=== PATIENT | female | born 1975 ===

== ENCOUNTER → 2019-10-25 | Outpatient (CLI) | payer BC ==
--- NOTE | 2019-10-25 17:52 | Diagnostic Imaging Report ---
INDICATION: Routine screening. COMPARISON: No prior mammograms are available for comparison. This is a baseline study. 2-D and 3-D bilateral screening mammography was performed. The current study was also evaluated with a Computer Aided Detection (CAD) system. 3-D tomosynthesis was also performed and reviewed. FINDINGS: Both breasts are heterogeneously dense, limiting the sensitivity of mammography. No mass or malignant-appearing microcalcifications are seen. Axillae are unremarkable. IMPRESSION: No mammographic features suspicious for malignancy are identified. ACR BI-RADS Category 1: Negative. Result letter will be mailed to the patient. Note: At least 10% of breast cancer is not imaged by mammography. Dictated by: Dictated on workstation # [id number]
== END ==
LOC: RAD 15:35
PROVIDERS: ATTEND Obstetrics & Gynecology
DX: Z12.31 Encounter for screening mammogram for malignant neoplasm of breast (principal)
CPT/HCPCS: 77067

== ENCOUNTER 2021-06-02 17:04 | Emergency (ER) | payer BC ==
[~2021-06-02] VITALS: Ht 163 cm; Wt 90.0 kg
[2021-06-02 17:37] LABS: CLARITY,URINE CLOUDY; COLOR,URINE ORANGE; GLUCOSE, URINE (UA) 1+ (NEGATIVE); KETONES,URINE TRACE (NEGATIVE); LEUKOCYTE ESTERASE ,URINE 2+ (NEGATIVE); NITRITE,URINE POSITIVE (NEGATIVE); PROTEIN,URINE 3+ (NEGATIVE)
--- NOTE | 2021-06-02 17:46 | ED GU-Female ---
General Chief Complaint: - Reproductive Stated Complaint: BURNING WITH URINATION/L LOW BACK PAIN Nursing Triage Note: PT CO OF PAIN AND BURNING UPON URINATION, HAS LOWER ABD DISCOMFORT AND LOW BACK PAIN. STARTED ON THURSDAY. PT STATES HAS BEEN TAKING AZO. Source: patient Exam Limitations: no limitations History of Present Illness Date Seen by Provider: Jun 02, 2021 Time Seen by Provider: 17:20 Initial Comments Burning and pain on urination with low abdomen and low back pain that began on Thursday. Has been using wljo-nax-gnyfryk Azo for symptom control. Timing/Duration: constant Severity/Quality: moderate Location: suprapubic Radiation: none Activities at Onset: none Prior Genitourinary Problems: none Associated Symptoms: lower back pain Allergies and Home Medications Allergies Coded Allergies: No Known Drug Allergies (Unverified , 06/02/21) Patient Home Medication List Home Medication List Reviewed: Yes Review of Systems Review of Systems Constitutional: see HPI EENTM: see HPI Respiratory: no symptoms reported Cardiovascular: no symptoms reported Genitourinary: see HPI Musculoskeletal: no symptoms reported Skin: no symptoms reported Psychiatric/Neurological: No Symptoms Reported Endocrine: No Symptoms Reported Past Fjbemtu-Uyflkg-Dlquma Hx Patient Social History Tobacco Use?: No Substance use?: No Alcohol Use?: Yes Alcohol type: Wine Alcohol Frequency: Rarely Pt feels they are or have been: No Immunizations Up To Date Second COVID19 Vaccination Con: MODERNA BOTH VACCINES Physical Exam Vital Signs Vital Signs - First Documented 06/02/21 17:09 Temp 36.9 Pulse 91 Resp 18 B/P (MAP) 118/55 (76) Pulse Ox 97 Capillary Refill : Less Than 3 Seconds Height, Weight, BMI Height: '" Weight: lbs. oz. kg; 33.00 BMI Method: General Appearance: WD/WN, no apparent distress HEENT: PERRL/EOMI, normal ENT inspection Respiratory: no respiratory distress, no accessory muscle use Gastrointestinal: normal bowel sounds, non tender, soft Extremities: normal range of motion, non-tender Neurologic/Psychiatric: alert, normal mood/affect, oriented x 3 Skin: normal color, warm/dry Progress/Results/Core Measures Suspected Sepsis SIRS Temperature: Pulse: 91 Respiratory Rate: 18 Blood Pressure 118 /55 Mean: 76 Results/Orders Lab Results Laboratory Tests Test 06/02/21 17:20 Range/Units Urine Color ORANGE Urine Clarity CLOUDY Urine pH 5.0 5-9 Urine Specific [place] >=1.030 1.016-1.022 Urine Protein 3+ H NEGATIVE Urine Glucose (UA) 1+ H NEGATIVE Urine Ketones TRACE H NEGATIVE Urine Nitrite POSITIVE H NEGATIVE Urine Bilirubin 2+ H NEGATIVE Urine Urobilinogen >=8.0 < = 1.0 MG/DL Urine Leukocyte Esterase 2+ H NEGATIVE Urine RBC (Auto) 3+ H NEGATIVE Urine RBC 50-100 H /HPF Urine WBC 25-50 H /HPF Urine Crystals PRESENT H /LPF Urine Amorphous Sediment RARE JUAN URATES H /LPF Urine Bacteria FEW H /HPF Urine Casts NONE /LPF Urine Mucus NEGATIVE /LPF Urine Culture Indicated YES My Orders Orders - DESIRAE REARDON APRN Ua Culture If Indicated (06/02/21 17:09) Urine Culture (06/02/21 17:20) Ketorolac Injection (Toradol Injection) (06/02/21 18:00) Ceftriaxone (Rocephin) (06/02/21 18:00) Vital Signs/I&O 06/02/21 17:09 Temp 36.9 Pulse 91 Resp 18 B/P (MAP) 118/55 (76) Pulse Ox 97 Capillary Refill : Less Than 3 Seconds Blood Pressure Mean: 76 Departure Impression Primary Impression: Urinary tract infection Disposition: 01 HOME, SELF-CARE Condition: Stable Departure-Patient Inst. Decision time for Depature: 18:08 Referrals: JORGE CHAPMAN MD (PCP/Family) Primary Care Physician Patient Instructions: Urinary Tract Infection, Adult (DC) Add. Discharge Instructions: All discharge instructions reviewed with patient and/or family. Voiced understanding. Scripts Cefuroxime Axetil (Cefuroxime) 250 Mg Tablet 250 MG PO BID, #10 TAB Prov: DESIRAE REARDON APRN 06/02/21 DESIRAE REARDON APRN Jun 02, 2021 17:46
[2021-06-02 17:47] LABS: BILIRUBIN,URINE 2+ (NEGATIVE); RBC,URINE 50-100 /HPF
[2021-06-02 17:48] LABS: AMORPHOUS SEDIMENT,UR RARE AMOR URATES /LPF; BACTERIA,URINE FEW /HPF; WBC,URINE 25-50 /HPF
[2021-06-02] MEDS ORDERED: cefTRIAXone 1,000 MG VIAL IM ONE (18:00)
[2021-06-02] MEDS ORDERED: KETOROLAC 30 MG/ML VIAL IM ONE (18:00)
[2021-06-02] MEDS ORDERED: CEFU250T80 PO (18:12)
[2021-06-02 18:34] VITALS: BP 118/55
== END 2021-06-02 18:45 | disposition home or self-care (01) ==
LOC: EDUNIT# 17:04 → ER 17:08
DX: N39.0 Urinary tract infection, site not specified (principal)
CPT/HCPCS: 81000; 87077; 87088; 87186; 99284

== ENCOUNTER 2022-07-06 13:32 | Emergency (ER) | payer SELFPAY ==
[~2022-07-06] VITALS: Ht 167 cm; Wt 93.0 kg
[~2022-07-06 13:32] MED LIST: CEFU250T80 PO
[2022-07-06] MEDS ORDERED: ACETAMINOPHEN 500 MG TAB (TYLENOL) PO ONE (14:00)
--- NOTE | 2022-07-06 14:02 | ED General ---
General Stated Complaint: UTI SYMPTOMS History of Present Illness Date Seen by Provider: Jul 06, 2022 Time Seen by Provider: 13:45 Initial Comments Patient is a 46-year-old female who presents to the emergency department with fever that began earlier today. Patient was diagnosed with a UTI 3 days ago and was placed on Bactrim. She states she has had improvement in her dysuria since that time. She states she generally feels unwell and has mild body aches/headache. She denies any cough, nasal congestion, vomiting/diarrhea. No known sick contacts. She has not taken anything today for the symptoms other than a dose of Tylenol early this morning. Allergies and Home Medications Allergies Coded Allergies: No Known Drug Allergies (Unverified , 06/02/21) Patient Home Medication List Home Medication List Reviewed: Yes Cefuroxime Axetil (Cefuroxime) 250 Mg Tablet, 250 MG PO BID Prescribed by: DESIRAE REARDON on 06/02/211811 Review of Systems Review of Systems Constitutional: see HPI EENTM: no symptoms reported Respiratory: no symptoms reported Cardiovascular: no symptoms reported Gastrointestinal: no symptoms reported Genitourinary: see HPI Psychiatric/Neurological: See HPI, Headache Past Xlbvqty-Bxtjxc-Smmnvn Hx Immunizations Up To Date Second COVID19 Vaccination Con: MODERNA BOTH VACCINES Physical Exam Vital Signs Vital Signs - First Documented 07/06/22 07/06/22 13:45 15:56 Temp 39.4 Pulse 113 Resp 20 B/P (MAP) 121/67 (85) Pulse Ox 97 O2 Delivery Room Air Capillary Refill : Height, Weight, BMI Height: '" Weight: lbs. oz. kg; 33.00 BMI Method: General Appearance: No Apparent Distress, WD/WN HEENT: PERRL/EOMI, TMs Normal, Normal ENT Inspection, Pharynx Normal Neck: Full Range of Motion, Normal Inspection Respiratory: Chest Non Tender, Lungs Clear, Normal Breath Sounds Cardiovascular: Regular Rate, Rhythm Gastrointestinal: Normal Bowel Sounds, Non Tender, Soft Back: Normal Inspection, No Vertebral Tenderness Extremity: Normal Capillary Refill, Normal Inspection, Normal Range of Motion, Non Tender, No Calf Tenderness Neurologic/Psychiatric: Alert, Oriented x3, No Motor/Sensory Deficits, Normal Mood/Affect Skin: Normal Color, Warm/Dry Progress/Results/Core Measures Suspected Sepsis SIRS Temperature: Pulse: Respiratory Rate: Laboratory Tests 07/06/22 14:19: White Blood Count 7.4 Blood Pressure / Mean: Laboratory Tests 07/06/22 14:19: Creatinine 0.83, Platelet Count 290, Total Bilirubin 0.3 Results/Orders Lab Results Laboratory Tests Test 07/06/22 14:06 07/06/22 14:19 07/06/22 14:21 Range/Units Urine Color YELLOW Urine Clarity CLEAR Urine pH 6.0 5-9 Urine Specific [place] <=1.005 1.016-1.022 Urine Protein NEGATIVE NEGATIVE Urine Glucose (UA) NEGATIVE NEGATIVE Urine Ketones NEGATIVE NEGATIVE Urine Nitrite NEGATIVE NEGATIVE Urine Bilirubin NEGATIVE NEGATIVE Urine Urobilinogen 0.2 < = 1.0 MG/DL Urine Leukocyte Esterase NEGATIVE NEGATIVE Urine RBC (Auto) 1+ H NEGATIVE Urine RBC 0-2 /HPF Urine WBC NONE /HPF Urine Squamous Epithelial Cells 10-25 H /HPF Urine Crystals NONE /LPF Urine Bacteria TRACE /HPF Urine Casts NONE /LPF Urine Mucus NEGATIVE /LPF Urine Culture Indicated NO White Blood Count 7.4 4.3-11.0 10^3/uL Red Blood Count 3.79 L 3.80-5.11 10^6/uL Hemoglobin 11.3 L 11.5-16.0 g/dL Hematocrit 33 L 35-52 % Mean Corpuscular Volume 88 80-99 fL Mean Corpuscular Hemoglobin 30 25-34 pg Mean Corpuscular Hemoglobin Concent 34 32-36 g/dL Red Cell Distribution Width 13.3 10.0-14.5 % Platelet Count 290 130-400 10^3/uL Mean Platelet Volume 9.4 9.0-12.2 fL Immature Granulocyte % (Auto) 1 % Neutrophils (%) (Auto) 73 42-75 % Lymphocytes (%) (Auto) 5 L 12-44 % Monocytes (%) (Auto) 5 0-12 % Eosinophils (%) (Auto) 16 H 0-10 % Basophils (%) (Auto) 0 0-10 % Neutrophils # (Auto) 5.4 1.8-7.8 10^3/uL Lymphocytes # (Auto) 0.4 L 1.0-4.0 10^3/uL Monocytes # (Auto) 0.4 0.0-1.0 10^3/uL Eosinophils # (Auto) 1.2 H 0.0-0.3 10^3/uL Basophils # (Auto) 0.0 0.0-0.1 10^3/uL Immature Granulocyte # (Auto) 0.1 0.0-0.1 10^3/uL Neutrophils % (Manual) 56 % Lymphocytes % (Manual) 8 % Monocytes % (Manual) 1 % Eosinophils % (Manual) 20 % Basophils % (Manual) 1 % Band Neutrophils 14 % Toxic Granulation 2+ Platelet Estimate NORMAL Clumped Platelets FEW Blood Morphology Comment NORMAL Sodium Level 130 L 135-145 MMOL/L Potassium Level 3.6 3.6-5.0 MMOL/L Chloride Level 101 98-107 MMOL/L Carbon Dioxide Level 18 L 21-32 MMOL/L Anion Gap 11 5-14 MMOL/L Blood Urea Nitrogen 5 L 7-18 MG/DL Creatinine 0.83 0.60-1.30 MG/DL Estimat Glomerular Filtration Rate 87 BUN/Creatinine Ratio 6 Glucose Level 104 70-105 MG/DL Calcium Level 8.3 L 8.5-10.1 MG/DL Corrected Calcium 8.5 8.5-10.1 MG/DL Total Bilirubin 0.3 0.1-1.0 MG/DL Aspartate Amino Transf (AST/SGOT) 126 H 5-34 U/L Alanine Aminotransferase (ALT/SGPT) 180 H 0-55 U/L Alkaline Phosphatase 141 H 40-136 U/L Total Protein 6.5 6.4-8.2 GM/DL Albumin 3.7 3.2-4.5 GM/DL Influenza Type A (RT-PCR) Not Detected Not Detecte Influenza Type B (RT-PCR) Not Detected Not Detecte SARS-CoV-2 RNA (RT-PCR) Not Detected Not Detecte My Orders Orders - TERESITA WARNER REMELT OPERATOR Covid 19 Inhouse Test (07/06/22 13:51) Influenza A And B By Pcr (07/06/22 13:51) Isolation Central Supply Req (07/06/22 13:51) Ua Culture If Indicated (07/06/22 13:51) Cbc With Automated Diff (07/06/22 13:51) Comprehensive Metabolic Panel (07/06/22 13:51) Iv/Invasive Line Insertion .IV INSERT (07/06/22 13:51) Acetaminophen Tablet (Tylenol Tablet) (07/06/22 14:00) Manual Differential (07/06/22 14:19) Medications Given in ED Vital Signs/I&O 07/06/22 07/06/22 13:45 15:56 Temp 39.4 38.0 Pulse 113 90 Resp 20 16 B/P (MAP) 121/67 (85) 110/58 Pulse Ox 97 98 O2 Delivery Room Air Capillary Refill : Progress Note : Progress Note Patient is nontoxic and well-hydrated on exam. Vital signs are notable for very mild tachycardia as well as a fever. No adventitious lung sounds or gastric of breathing noted. No focal nausea deficits appreciated. Abdominal exam is benign and reassuring. No obvious nidus of bacterial infection noted on exam. Laboratory evaluation is reassuring. No leukocytosis appreciated. No marked metabolic derangements noted although patient is mildly hyponatremic and has mild transaminitis. Urinalysis does not reveal any findings concerning for persistent infection. Fever was reduced with a dose of antipyretic. She states she feels better. Flu and COVID were negative. Will discharge home with recommendations for supportive care and close follow-up with PCP. Return precautions for urgent symptomology discussed. Patient verbalized understanding. Departure Impression Primary Impression: Flu-like symptoms Disposition: 01 HOME, SELF-CARE Condition: Stable Departure-Patient Inst. Decision time for Depature: 15:20 Referrals: ISSA BARAJAS DO (PCP) Primary Care Physician HUSEYIN BARAJAS DNP (Family) Primary Care Physician Patient Instructions: Viral Syndrome (DC) TERESITA WARNER APRN Jul 06, 2022 14:02
[2022-07-06 14:09] LABS: BILIRUBIN,URINE NEGATIVE (NEGATIVE); CLARITY,URINE CLEAR; COLOR,URINE YELLOW; GLUCOSE, URINE (UA) NEGATIVE (NEGATIVE); KETONES,URINE NEGATIVE (NEGATIVE); LEUKOCYTE ESTERASE ,URINE NEGATIVE (NEGATIVE); NITRITE,URINE NEGATIVE (NEGATIVE); PROTEIN,URINE NEGATIVE (NEGATIVE)
[2022-07-06 14:19] LABS: BACTERIA,URINE TRACE /HPF; RBC,URINE 0-2 /HPF
[2022-07-06 14:23] LABS: BASOPHILS % (AUTO) 0 % (0-10); EOSINOPHILS # (AUTO) 1.2 10^3/uL (0.0-0.3); EOSINOPHILS % (AUTO) 16 % (0-10); HEMATOCRIT 33 % (35-52); HEMOGLOBIN 11.3 g/dL (11.5-16.0); LYMPHOCYTES # (AUTO) 0.4 10^3/uL (1.0-4.0); LYMPHOCYTES % (AUTO) 5 % (12-44); MEAN CORPUSCULAR HEMOGLOBIN 30 pg (25-34); MEAN CORPUSCULAR HGB CONC 34 g/dL (32-36); MEAN CORPUSCULAR VOLUME 88 fL (80-99); MEAN PLATELET VOLUME 9.4 fL (9.0-12.2); MONOCYTES # (AUTO) 0.4 10^3/uL (0.0-1.0); MONOCYTES % (AUTO) 5 % (0-12); NEUTROPHILS # (AUTO) 5.4 10^3/uL (1.8-7.8); NEUTROPHILS % (AUTO) 73 % (42-75); PLATELET COUNT 290 10^3/uL (130-400); WHITE BLOOD COUNT 7.4 10^3/uL (4.3-11.0)
[2022-07-06 14:34] LABS: ALBUMIN 3.7 GM/DL (3.2-4.5)
[2022-07-06 14:35] LABS: POTASSIUM 3.6 MMOL/L (3.6-5.0)
[2022-07-06 14:36] LABS: CALCIUM 8.3 MG/DL (8.5-10.1)
[2022-07-06 14:37] LABS: TOTAL PROTEIN 6.5 GM/DL (6.4-8.2)
[2022-07-06 14:39] LABS: BILIRUBIN,TOTAL 0.3 MG/DL (0.1-1.0)
[2022-07-06 14:41] LABS: CREATININE SERUM 0.83 MG/DL (0.60-1.30)
[2022-07-06 15:00] LABS: BAND NEUTROPHILS 14 %; BASOPHILS % (MANUAL) 1 %; EOSINOPHILS % (MANUAL) 20 %; LYMPHOCYTES % (MANUAL) 8 %; MONOCYTES % (MANUAL) 1 %; NEUTROPHILS % (MANUAL) 56 %; PLATELET CLUMPS FEW; PLATELET ESTIMATE NORMAL; RBC MORPH NORMAL
[2022-07-06 15:01] LABS: TOXIC GRANULATION/VACUOLAZATIO 2+
[2022-07-06 15:56] VITALS: BP 110/58
== END 2022-07-06 15:56 | disposition home or self-care (01) ==
LOC: EDUNIT# 13:32 → ER 13:36
DX: R50.9 Fever, unspecified (principal); R00.0 Tachycardia, unspecified; Z20.822 Contact with and (suspected) exposure to COVID-19
CPT/HCPCS: 36415; 80053; 81000; 85007; 85027; 87636; 99283

== ENCOUNTER → 2022-09-19 | Outpatient (CLI) | payer BC ==
--- NOTE | 2022-09-19 13:11 | Diagnostic Imaging Report ---
Indication: Routine screening. Comparison is made with prior mammogram 10/25/2019. 2-D and 3-D bilateral screening mammography was performed with CAD. Both breasts are heterogeneously dense, limiting the sensitivity of mammography. The parenchymal pattern is stable. No mass or malignant-appearing microcalcifications are seen. Axillae are unremarkable. IMPRESSION: BI-RADS Category 1 No mammographic features suspicious for malignancy are identified. ACR BI-RADS Category 1: Negative. Result letter will be mailed to the patient. Note: At least 10% of breast cancer is not imaged by mammography. Dictated by: Dictated on workstation # [id number]
== END ==
LOC: RAD 11:13
PROVIDERS: ATTEND Nurse Practitioner Family
DX: Z12.31 Encounter for screening mammogram for malignant neoplasm of breast (principal)
CPT/HCPCS: 77063; 77067

== ENCOUNTER 2023-03-15 07:00 | Emergency (ER) | payer SELFPAY ==
[~2023-03-15] VITALS: Ht 165 cm; Wt 90.0 kg
[2023-03-15 07:10] VITALS: BP 132/79
[2023-03-15] MEDS ORDERED: PRD50T PO (07:31)
--- NOTE | 2023-03-15 07:32 | ED Integumentary General ---
General Chief Complaint: Allergic Reaction Stated Complaint: ALLERGY ALL OVER Nursing Triage Note: ARRIVED VIA AMB WITH COMPLAINTS OF A WIDE SPREAD RASH THAT STARTED X3 DAYS AGO. PT REPORTS TAKING ZYRTEC AND BENADRYL CREAM. Source: patient Exam Limitations: no limitations History of Present Illness Date Seen by Provider: Mar 15, 2023 Time Seen by Provider: 07:18 Initial Comments 47-year-old female presents to the emergency department today for skin rash. Symptoms started about 4 days ago and have been worsening. She thinks she is allergic to something. Has been taking Zyrtec and Benadryl cream without much relief. No chest pain, shortness of breath nausea or vomiting. Medications or foods. No new detergents soaps or other exposures. All other systems reviewed and negative except documented per HPI. Voice recognition software was used to help create this chart Allergies and Home Medications Allergies Coded Allergies: naproxen (Verified Allergy, Unknown, 03/15/23) Patient Home Medication List Home Medication List Reviewed: Yes Discontinued Medications Cefuroxime Axetil (Cefuroxime) 250 Mg Tablet, 250 MG PO BID Discontinued Reason: No Longer Taking Prescribed by: DESIRAE REARDON on 06/02/211811 Last Action: Discontinued Review of Systems Review of Systems Constitutional: see HPI Past Efplbmz-Rdgzop-Xtlfxk Hx Patient Social History Tobacco Use?: No Alcohol Use?: Yes Alcohol Frequency: Once in a while Immunizations Up To Date First/Initial COVID19 Vaccinat: MODERNA BOTH VACCINES Second COVID19 Vaccination Con: MODERNA BOTH VACCINES Third COVID19 Vaccination Date: MODERNA BOTH VACCINES Physical Exam Vital Signs Vital Signs - First Documented 03/15/23 07:10 Temp 36.5 Pulse 81 Resp 16 B/P (MAP) 132/79 (96) Pulse Ox 99 O2 Delivery Room Air Capillary Refill : Less Than 3 Seconds General Appearance: WD/WN, no apparent distress HEENT: normal ENT inspection, pharynx normal Neck: non-tender, supple Cardiovascular: regular rate, rhythm, no murmur Respiratory: chest non-tender, lungs clear, normal breath sounds, no respiratory distress, no accessory muscle use Gastrointestinal: normal bowel sounds, non tender, soft Extremities: normal capillary refill Neurologic/Psychiatric: alert, normal mood/affect, oriented x 3 Skin: rash (Diffuse maculopapular rash worse in the inguinal, lower abdominal region but extending up into her chest and then mildly on her arms and legs. Spares the face palms and soles.) Progress/Results/Core Measures Results/Orders Vital Signs/I&O 03/15/23 07:10 Temp 36.5 Pulse 81 Resp 16 B/P (MAP) 132/79 (96) Pulse Ox 99 O2 Delivery Room Air Blood Pressure Mean: 96 Departure Communication (Admissions) Patient is hemodynamically stable. She has diffuse macular rash that is fairly significant. There is no toxic type symptoms and no evidence for more systemic infection. It does not appear to be SJS, TEN or other emergent rash. This is most likely from an allergic reaction of some sort. We will go ahead and put her on a steroid taper and recommended oral Benadryl rather than just Benadryl cream. She will continue Zyrtec as needed. Impression Primary Impression: Skin rash Disposition: HOME, SELF-CARE Condition: Stable Departure-Patient Inst. Referrals: ISSA BARAJAS DO (PCP) Primary Care Physician HUSEYIN BARAJAS DNP (Family) Primary Care Physician Patient Instructions: Skin Rash (DC) Add. Discharge Instructions: Take the steroid medication as prescribed until it is gone. Do not stop taking this abruptly and finish the whole course exactly as prescribed. Use oral Benadryl, 50 mg every 6 hours as needed. This will make you drowsy so do not drive or make important decisions while taking it. Return to the emergency department for any shortness of breath, severe abdominal pain, vomiting or chest pain. All discharge instructions reviewed with patient and/or family. Voiced understanding. Scripts Prednisone (Prednisone) 50 Mg Tab 50 MG PO DAILY for 5 Days, #5 TAB Prov: CHEKO FALL DO 03/15/23 CHEKO FALL DO Mar 15, 2023 07:32
== END 2023-03-15 07:36 | disposition home or self-care (01) ==
LOC: EDUNIT# 07:00 → ER 07:03
DX: R21 Rash and other nonspecific skin eruption (principal)
CPT/HCPCS: 99281